=== PATIENT | female | born 1970 | race Caucasian/White ===

== ENCOUNTER 2018-04-08 07:53 | Day surgery (SDC) | payer BC ==
[~2018-04-08] VITALS: Ht 167.6 cm; Wt 78.8 kg
[~2018-04-08 07:53] MED LIST: LEVO112T2 PO; LIDOCAINE 2% INJ 100 MG/5 ML SDV (FOR ANES.) As Ordered ONE; NS 1,000 ML IV ONE; PROPOFOL 200 MG/20 ML VIAL As Ordered ONE
--- NOTE | 2018-04-08 10:09 | ROOR ---
Patient Name: Jesi Bright Procedure Date: 04/08/2018 9:35 AM Date of : 1970 Age: 48 Room: [facility] Gender: Female Note Status: Finalized Procedure: Colonoscopy Indications: Screening for colorectal malignant neoplasm Providers: Duy Carranza MD Referring MD: SAYRA DEL ANGEL NP Requesting Provider: Medicines: Monitored Anesthesia Care Complications: No immediate complications. Procedure: Pre-Anesthesia Assessment: - Prior to the procedure, a History and Physical was performed, and patient medications and allergies were reviewed. The patient is competent. The risks and benefits of the procedure and the sedation options and risks were discussed with the patient. All questions were answered and informed consent was obtained. Patient identification and proposed procedure were verified by the physician, the nurse and the anesthesiologist in the procedure room. Mental Status Examination: alert and oriented. Airway Examination: normal oropharyngeal airway and neck mobility. Respiratory Examination: clear to auscultation. CV Examination: normal. Prophylactic Antibiotics: The patient does not require prophylactic antibiotics. Prior Anticoagulants: The patient has taken no previous anticoagulant or antiplatelet agents. ASA Grade Assessment: II - A patient with mild systemic disease. After reviewing the risks and benefits, the patient was deemed in satisfactory condition to undergo the procedure. The anesthesia plan was to use monitored anesthesia care (MAC). Immediately prior to administration of medications, the patient was re-assessed for adequacy to receive sedatives. The heart rate, respiratory rate, oxygen saturations, blood pressure, adequacy of pulmonary ventilation, and response to care were monitored throughout the procedure. The physical status of the patient was re-assessed after the procedure. The Colonoscope was introduced through the anus and advanced to the terminal ileum, with identification of the appendiceal orifice and IC valve. The colonoscopy was performed without difficulty. The patient tolerated the procedure well. The quality of the bowel preparation was good. The terminal ileum, ileocecal valve, appendiceal orifice, and rectum were photographed. Scope insertion time was 4 minutes. Scope withdrawal time was 8 minutes. The total duration of the procedure was 12 minutes. Findings: The perianal and digital rectal examinations were normal. The terminal ileum appeared normal. A 3 mm polyp was found in the descending colon. The polyp was sessile. The polyp was removed with a jumbo cold forceps. Resection and retrieval were complete. Verification of patient identification for the specimen was done by the physician and nurse using the patient's name, date and medical record number. Estimated blood loss was minimal. Two sessile polyps were found in the recto-sigmoid colon. The polyps were 3 to 4 mm in size. These polyps were removed with a jumbo cold forceps. Resection and retrieval were complete. Non-bleeding external and internal hemorrhoids were found during retroflexion. The hemorrhoids were small. Impression: - The examined portion of the ileum was normal. - One 3 mm polyp in the descending colon, removed with a jumbo cold forceps. Resected and retrieved. - Two 3 to 4 mm polyps at the recto-sigmoid colon, removed with a jumbo cold forceps. Resected and retrieved. - Non-bleeding external and internal hemorrhoids. Recommendation: - Patient has a contact number available for emergencies. The signs and symptoms of potential delayed complications were discussed with the patient. Return to normal activities tomorrow. Written discharge instructions were provided to the patient. - High fiber diet. - Continue present medications. - Await pathology results. - Repeat colonoscopy in 5-10 years for surveillance based on pathology results. - Based on the biopsy results you will receive a phone call from GI clinic in 2-3 weeks to review the pathology results AND/OR your results will be faxed to your Primary care physician. - Return to primary care physician. Duy Carranza MD Duy Carranza MD 04/08/2018 10:09:29 AM This report has been signed electronically. Number of Addenda: 0 Note Initiated On: 04/08/2018 9:35 AM Estimated Blood Loss: Estimated blood loss was minimal.
[2018-04-08 10:24] VITALS: BP 110/87
== END 2018-04-08 10:25 | disposition home or self-care (01) ==
LOC: M OPP 07:53
PROVIDERS: ATTEND Internal Medicine Gastroenterology
DX: Z12.11 Encounter for screening for malignant neoplasm of colon (principal); K63.5 Polyp of colon; K64.8 Other hemorrhoids; F17.210 Nicotine dependence, cigarettes, uncomplicated; Z80.42 Family history of malignant neoplasm of prostate; Z80.49 Family history of malignant neoplasm of other genital organs; Z79.899 Other long term (current) drug therapy; Z88.0 Allergy status to penicillin; Z88.1 Allergy status to other antibiotic agents; Z88.2 Allergy status to sulfonamides

== ENCOUNTER → 2020-08-25 | Outpatient (CLI) | payer BC ==
[~2020-08-25] MED LIST changes: -LIDOCAINE 2% INJ 100 MG/5 ML SDV (FOR ANES.) As Ordered ONE; -NS 1,000 ML IV ONE; -PROPOFOL 200 MG/20 ML VIAL As Ordered ONE
== END ==
LOC: M LABSMTC 10:50
PROVIDERS: ATTEND Anesthesiology
DX: Z01.812 Encounter for preprocedural laboratory examination (principal); Z20.822 Contact with and (suspected) exposure to COVID-19

== ENCOUNTER → 2020-08-26 | Outpatient (CLI) | payer BC ==
--- NOTE | 2020-08-26 16:46 | ECGEPIP ---
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 Electronically Signed on 08-26-2020 16:46:18 EDT by Camron Gage
== END ==
LOC: M EKG 07:27
PROVIDERS: ATTEND Anesthesiology
DX: Z01.818 Encounter for other preprocedural examination (principal); E03.9 Hypothyroidism, unspecified

== ENCOUNTER 2020-08-30 06:26 | Day surgery (SDC) | payer BC ==
[~2020-08-30] VITALS: Ht 167.6 cm; Wt 73.9 kg
[~2020-08-30 06:26] MED LIST changes: +LR 1,000 ML IV ONE
[2020-08-30] MEDS ORDERED: OXYMETAZOLINE 0.05% NASAL SPRAY (AFRIN) As Ordered ONE (08:08)
[2020-08-30] MEDS ORDERED: METHYLENE BLUE 0.5% (5MG/ML) 10 ML AMP (PROVAYBLUE) As Ordered ONE (08:08)
[2020-08-30] MEDS ORDERED: dexameTHASONE 4 MG/ML 1ML VIAL (J1100 PER 1MG) As Ordered ONE (08:09)
[2020-08-30] MEDS ORDERED: ONDANSETRON 4MG/2ML VIAL As Ordered ONE (08:09)
[2020-08-30] MEDS ORDERED: MIDAZOLAM INJ 2MG/2ML VIAL (J2250 PER 1MG) As Ordered ONE (08:09)
[2020-08-30] MEDS ORDERED: fentaNYL 250 MCG/5 ML INJECTION (J3010) As Ordered ONE (08:09)
[2020-08-30] MEDS ORDERED: LIDOCAINE 2% 100MG/5ML SDV (FOR ANES.) As Ordered ONE (08:09)
[2020-08-30] MEDS ORDERED: propofoL 200 MG/20 ML VIAL As Ordered ONE (08:09)
[2020-08-30] MEDS ORDERED: ROCURONIUM BROMIDE 50 MG/5 ML VIAL As Ordered ONE (08:09)
[2020-08-30] MEDS ORDERED: SUGAMMADEX SODIUM 500 MG/5 ML VIAL (BRIDION) As Ordered ONE (08:47)
[2020-08-30] MEDS ORDERED: LR 1,000 ML IV SCH ×2 (09:40→09:45)
[2020-08-30] MEDS ORDERED: HYDROcodone/APAP LIQUID 7.5-325MG 15ML UDC (LORTAB ELIXIR) PO PRN (09:45)
[2020-08-30] MEDS ORDERED: ONDANSETRON 4MG/2ML VIAL IV PRN ×2 (09:45)
[2020-08-30] MEDS ORDERED: fentaNYL 100 MCG/2 ML INJECTION (J3010) IV PRN (09:45)
[2020-08-30] MEDS ORDERED: PERCOCET 5MG/325MG TAB PO PRN (09:45)
[2020-08-30 10:23] VITALS: BP 122/72
--- NOTE | 2020-08-30 15:18 | POST-OPPD ---
Postoperative Procedure Note Date Of Procedure: Aug 30, 2020 Time Of Procedure: 08:30 PREPROCEDURE DIAGNOSES: [Right laryngeal lesion]. POSTPROCEDURE DIAGNOSES: [Same]. PROCEDURE PERFORMED: [Suspension microlaryngoscopy and removal of right laryngeal lesion]. SURGEON: MD Lee PAPER CUTTER: [None], ANESTHESIA: [Gen.]. ESTIMATED BLOOD LOSS: Approximately [2] mL. COMPLICATIONS: [None]. REMARKS: . FINDINGS: SPECIMENS REMOVED: [Right laryngeal lesion] PROCEDURE NOTE: [ Jesi is a 50-year-old female who was seen in the office and diagnosed with the above condition. Decision was made in consultation with the patient after explanation of the risks and benefits to undergo the above-named procedure. She was admitted through same day surgery program and taken to the operating room where she was administered a general anesthetic by intravenous injection. She was intubated endotracheally. The Dedo laryngoscope was inserted into the airway and advanced to the vocal folds. A polyp on the right vocal fold was identified. Subglottic area was clear. The Lewy suspension apparatus was connected. The microscope was brought into position. Using a cup biopsy forceps we grasped the lesion and retracted medially. Using laryngeal scissors, we dissected this off the vocal fold. Hemostasis was achieved with pledgets soaked in Afrin. These were removed. The Lewy suspension apparatus was removed. The laryngoscope was removed from the airway. Patient was allowed to recover from the general anesthetic. ]. DESCRIPTION OF PROCEDURE: . Camron Mayers MD Aug 30, 2020 15:18
== END 2020-08-30 10:24 | disposition home or self-care (01) ==
LOC: M SDC 06:26
PROVIDERS: ATTEND Otolaryngology
DX: J38.1 Polyp of vocal cord and larynx (principal); E03.9 Hypothyroidism, unspecified; F17.218 Nicotine dependence, cigarettes, with other nicotine-induced disorders; F12.10 Cannabis abuse, uncomplicated; Z79.899 Other long term (current) drug therapy; Z88.0 Allergy status to penicillin; Z88.2 Allergy status to sulfonamides; Z88.1 Allergy status to other antibiotic agents
CPT/HCPCS: 31541; 88305; J1100; J2250; J2405; J3010; Q9968

== ENCOUNTER → 2021-05-18 | Outpatient (CLI) | payer BC ==
[~2021-05-18] MED LIST changes: -LR 1,000 ML IV ONE
== END ==
LOC: M WHC 06:40
PROVIDERS: ATTEND Obstetrics & Gynecology
DX: Z12.31 Encounter for screening mammogram for malignant neoplasm of breast (principal)

== ENCOUNTER → 2021-08-08 | Outpatient (CLI) | payer BC ==
[~2021-08-08] MED LIST changes: +ISOVUE-370 76% 100ML VIAL As Ordered ONE
== END ==
LOC: M RAD 15:10
PROVIDERS: ATTEND Nurse Practitioner Family
DX: R53.83 Other fatigue (principal)

== ENCOUNTER → 2021-09-21 | Outpatient (CLI) | payer BC ==
[~2021-09-21] MED LIST changes: -ISOVUE-370 76% 100ML VIAL As Ordered ONE; +PROHANCE 279.3MG/ML 15ML VIAL ONE
== END ==
LOC: M PLAIMG 12:34
PROVIDERS: ATTEND Nurse Practitioner Family
DX: D44.12 Neoplasm of uncertain behavior of left adrenal gland (principal)
CPT/HCPCS: 74183; A9576

== ENCOUNTER → 2022-06-05 | Outpatient (CLI) | payer BC ==
[~2022-06-05] MED LIST changes: -PROHANCE 279.3MG/ML 15ML VIAL ONE
== END ==
LOC: M WHC 08:22
PROVIDERS: ATTEND Obstetrics & Gynecology
DX: Z12.31 Encounter for screening mammogram for malignant neoplasm of breast (principal)

== ENCOUNTER → 2022-08-29 | Outpatient (CLI) | payer BC | LOC: M RAD 06:46 | PROVIDERS: ATTEND Nurse Practitioner Family | DX: R91.1 Solitary pulmonary nodule (principal) ==

== ENCOUNTER → 2022-10-25 | Outpatient (CLI) | payer BC ==
[~2022-10-25] MED LIST changes: +PROHANCE 279.3MG/ML 15ML VIAL As Ordered ONE
== END ==
LOC: M RAD 13:23
PROVIDERS: ATTEND Nurse Practitioner Family
DX: D35.02 Benign neoplasm of left adrenal gland (principal)
CPT/HCPCS: 74183; A9576

== ENCOUNTER → 2023-06-12 | Outpatient (CLI) | payer BC, OTHER, SELFPAY ==
[~2023-06-12] MED LIST changes: -PROHANCE 279.3MG/ML 15ML VIAL As Ordered ONE
== END ==
LOC: M WHC 09:54
PROVIDERS: ATTEND Obstetrics & Gynecology
DX: Z12.31 Encounter for screening mammogram for malignant neoplasm of breast (principal); Z13.820 Encounter for screening for osteoporosis

== ENCOUNTER → 2023-08-29 | Outpatient (CLI) | payer OTHER | LOC: M ADAMS 14:59 | PROVIDERS: ATTEND Nurse Practitioner Family | DX: M47.892 Other spondylosis, cervical region (principal); M50.122 Cervical disc disorder at C5-C6 level with radiculopathy ==

== ENCOUNTER → 2023-11-29 | Outpatient (CLI) | payer OTHER | LOC: M RAD 14:36 | PROVIDERS: ATTEND Nurse Practitioner Family | DX: F17.200 Nicotine dependence, unspecified, uncomplicated (principal) ==

== ENCOUNTER → 2024-06-12 | Outpatient (CLI) | payer BC, OTHER, SELFPAY | LOC: M WHC 06:40 | PROVIDERS: ATTEND Obstetrics & Gynecology | DX: Z12.31 Encounter for screening mammogram for malignant neoplasm of breast (principal); R92.333 Mammographic heterogeneous density, bilateral breasts ==

== ENCOUNTER → 2024-12-11 | Outpatient (CLI) | payer BC | LOC: M ADAMS 10:54 | PROVIDERS: ATTEND Nurse Practitioner Family | DX: M67.442 Ganglion, left hand (principal) ==

== ENCOUNTER → 2024-12-18 | Outpatient (CLI) | payer BC | LOC: M RAD 10:25 | PROVIDERS: ATTEND Nurse Practitioner Family | DX: F17.210 Nicotine dependence, cigarettes, uncomplicated (principal) ==

== ENCOUNTER → 2024-12-18 | Outpatient (CLI) | payer BC | LOC: M PLARAD 13:06 | PROVIDERS: ATTEND Nurse Practitioner Family | DX: M54.12 Radiculopathy, cervical region (principal) ==